=== PATIENT | female | born 1975 | race Two or more races ===

== ENCOUNTER 2017-11-25 10:59 | Outpatient (CLI) | payer OTHER | END 2017-11-25 15:10 | disposition home or self-care (01) | LOC: MAMO-SONO 10:59 | DX: Z12.31 Encounter for screening mammogram for malignant neoplasm of breast (principal); N64.89 Other specified disorders of breast; N80.0 Endometriosis of uterus; M79.641 Pain in right hand ==

== ENCOUNTER → 2019-02-11 | Outpatient (CLI) | payer OTHER | END | disposition home or self-care (01) | LOC: MAMO-SONO 10:01 | DX: N92.0 Excessive and frequent menstruation with regular cycle (principal); Z12.31 Encounter for screening mammogram for malignant neoplasm of breast ==

== ENCOUNTER 2019-12-07 10:24 | Outpatient (CLI) | payer OTHER | END 2019-12-07 10:48 | disposition home or self-care (01) | LOC: MAMO-SONO 10:24 | DX: Z12.31 Encounter for screening mammogram for malignant neoplasm of breast (principal); N63.10 Unspecified lump in the right breast, unspecified quadrant; N63.20 Unspecified lump in the left breast, unspecified quadrant; R10.2 Pelvic and perineal pain; D25.9 Leiomyoma of uterus, unspecified ==

== ENCOUNTER 2021-04-20 13:21 | Outpatient (CLI) | payer OTHER | END 2021-04-20 13:42 | disposition home or self-care (01) | LOC: MAMO-SONO 13:21 | PROVIDERS: ATTEND Specialist | DX: Z12.31 Encounter for screening mammogram for malignant neoplasm of breast (principal); R10.2 Pelvic and perineal pain; N63.0 Unspecified lump in unspecified breast ==